=== PATIENT | male | born 1940 | race Caucasian/White ===

== ENCOUNTER 2024-09-07 09:35 | Day surgery (SDC) | payer OTHER ==
[~2024-09-07] VITALS: Ht 172.7 cm; Wt 86.6 kg
[~2024-09-07 09:35] MED LIST: Lactated Ringer's 1,000 ML IV ONE; propofoL 50 ML IV ONE
[2024-09-07] MEDS ORDERED: Lactated Ringer's 1,000 ML IV ONE (10:25)
[2024-09-07] MEDS ORDERED: TAMSULOSIN HCL0.4 M1 PO (10:33)
[2024-09-07] MEDS ORDERED: ROPINIROLE HCL2 M1 PO (10:33)
[2024-09-07] MEDS ORDERED: FINA5 PO (10:33)
[2024-09-07] MEDS ORDERED: LOSA50 PO (10:34)
[2024-09-07 12:35] VITALS: BP 145/64
== END 2024-09-07 12:34 | disposition home or self-care (01) ==
LOC: ORSCSDS 09:35
PROVIDERS: Surgery
PROC: 0DBK8ZX Excision of Ascending Colon, Via Natural or Artificial Opening Endoscopic, Diagnostic (ICD-10-PCS; principal; 2024-09-07 11:00)
DX: K62.5 Hemorrhage of anus and rectum (principal); K64.2 Third degree hemorrhoids; K59.00 Constipation, unspecified; D12.2 Benign neoplasm of ascending colon; K57.30 Diverticulosis of large intestine without perforation or abscess without bleeding; Z86.73 Personal history of transient ischemic attack (TIA), and cerebral infarction without residual deficits; I10 Essential (primary) hypertension; G47.30 Sleep apnea, unspecified; E78.5 Hyperlipidemia, unspecified; Z87.891 Personal history of nicotine dependence; N40.0 Benign prostatic hyperplasia without lower urinary tract symptoms; Z79.82 Long term (current) use of aspirin; Z79.02 Long term (current) use of antithrombotics/antiplatelets; Z79.899 Other long term (current) drug therapy
CPT/HCPCS: 88305; J2704; J7120